=== PATIENT | female | born 1945 | race African-American/Black ===

== ENCOUNTER 2017-10-19 08:39 | Inpatient (IN) | payer OTHER ==
[2017-10-19] VITALS (14 sets, daily range): BP systolic 153–190; BP diastolic 44–78
[~2017-10-19] VITALS: Ht 160 cm; Wt 119.8 kg
[~2017-10-19 08:39] MED LIST: CHLORTHALIDONE25 MG PO; ETODOLAC 400 M400 M1 PO; FLEXERIL PO; GLUCOPHAGE500 MG PO; NORCO 5-325 TA1 EACH PO; NORVASC10 MG PO; PRINIVIL10 MG PO
[2017-10-19 10:16] LABS: ABSOLUTE NEUTROPHILS 7.6 thou/uL (1.4-8.2); BASOPHILS 0.8 % (0.0-2.0); HEMATOCRIT 38.3 % (37.0-47.0); HEMOGLOBIN 13.1 gm/dL (12.0-15.0); LYMPHOCYTES 21.3 % (24.0-44.0); MCH 30.5 pg (26.0-34.0); MCHC 34.3 g/dL (28.0-37.0); MCV 88.9 fL (80.0-100.0); MONOCYTES 7.8 % (1.0-8.0); PLATELET COUNT 384 thou/uL (150-400); POLYS 69.1 % (36.0-66.0); RDW 13.7 % (10.5-14.5)
[2017-10-19 10:28] LABS: CALCIUM 9.6 mg/dL (8.5-10.1); CREATININE 1.2 mg/dL (0.6-1.0); POTASSIUM 3.6 mmol/L (3.5-5.1)
[2017-10-19] MEDS ORDERED: COZAAR 25 MG TA25 M1 PO (18:44)
[2017-10-19 21:30] LABS: HEMOGLOBIN 12.3 gm/dL (12.0-15.0); MCH 30.3 pg (26.0-34.0); MCHC 34.1 g/dL (28.0-37.0); MCV 88.7 fL (80.0-100.0); RBC 4.05 mil/uL (4.20-5.00); RDW 13.6 % (10.5-14.5); WBC 10.4 thou/uL (4.0-11.0)
[2017-10-20] VITALS (25 sets, daily range): BP systolic 139–180; BP diastolic 52–86
[2017-10-20 03:38] LABS: HEMATOCRIT 37.3 % (37.0-47.0); HEMOGLOBIN 12.6 gm/dL (12.0-15.0); MCH 30.4 pg (26.0-34.0); MCHC 33.9 g/dL (28.0-37.0); MCV 89.9 fL (80.0-100.0); RBC 4.15 mil/uL (4.20-5.00); WBC 9.7 thou/uL (4.0-11.0)
[2017-10-20 03:48] LABS: CALCIUM 8.8 mg/dL (8.5-10.1); CREATININE 0.9 mg/dL (0.6-1.0); POTASSIUM 3.5 mmol/L (3.5-5.1)
[2017-10-20 05:32] LABS: HEMATOCRIT 36.6 % (37.0-47.0); HEMOGLOBIN 12.3 gm/dL (12.0-15.0); MCH 30.3 pg (26.0-34.0); MCHC 33.7 g/dL (28.0-37.0); RBC 4.06 mil/uL (4.20-5.00); RDW 13.8 % (10.5-14.5); WBC 9.5 thou/uL (4.0-11.0)
[2017-10-20 05:43] LABS: APTT 36.2 Seconds (24.5-32.8); FIBRINOGEN 205.5 mg/dL (210-360)
[2017-10-20 11:48] LABS: FIBRINOGEN 235.1 mg/dL (210-360)
[2017-10-21] VITALS (16 sets, daily range): BP systolic 129–174; BP diastolic 49–77
[2017-10-21 06:28] LABS: HEMATOCRIT 32.8 % (37.0-47.0); HEMOGLOBIN 11.1 gm/dL (12.0-15.0); MCH 30.4 pg (26.0-34.0); MCHC 33.9 g/dL (28.0-37.0); MCV 89.6 fL (80.0-100.0); RBC 3.66 mil/uL (4.20-5.00); RDW 13.9 % (10.5-14.5); WBC 9.4 thou/uL (4.0-11.0)
[2017-10-21 06:46] LABS: ALBUMIN 2.7 g/dL (3.4-5.0); ANION GAP 9 mmol/L (7-16); BUN 7 mg/dL (7-18); CALCIUM 8.2 mg/dL (8.5-10.1); CHLORIDE 105 mmol/L (98-107); CHOLESTEROL 180 mg/dL (<200); CO2 24 mmol/L (21-32); CREATININE 0.9 mg/dL (0.6-1.0); GLUCOSE 132 mg/dL (74-106); HDL CHOLESTEROL 66 mg/dL (>40); LDL CHOLESTEROL 94 mg/dL (<100); POTASSIUM 3.5 mmol/L (3.5-5.1); SGOT 28 U/L (15-37); SGPT 23 U/L (30-65); SODIUM 138 mmol/L (136-145); TC:HDL 2.7 Ratio (Not establshd); TOTAL BILIRUBIN 0.4 mg/dL (<0.1-1.0); TOTAL PROTEIN 5.9 g/dL (6.4-8.2); TRIGLYCERIDE 101 mg/dL (<150); VLDL 20 mg/dL (<40)
[2017-10-21 15:06] LABS: GLYCOHEMOGLOBIN (HGB A1C) 6.4 % (4.8-5.6)
[2017-10-22 00:14] VITALS: BP 151/59
[2017-10-22 04:18] VITALS: BP 176/63
[2017-10-22 06:13] LABS: HEMATOCRIT 32.1 % (37.0-47.0); HEMOGLOBIN 10.9 gm/dL (12.0-15.0); MCH 30.2 pg (26.0-34.0); RBC 3.6 mil/uL (4.20-5.00); RDW 13.8 % (10.5-14.5); WBC 8.6 thou/uL (4.0-11.0)
[2017-10-22 06:34] LABS: ALBUMIN 2.9 g/dL (3.4-5.0); CALCIUM 8.8 mg/dL (8.5-10.1); POTASSIUM 3.6 mmol/L (3.5-5.1); TOTAL BILIRUBIN 0.3 mg/dL (<0.1-1.0); TOTAL PROTEIN 6.5 g/dL (6.4-8.2)
[2017-10-22 07:30] VITALS: BP 153/43; BP 153/71
[2017-10-22 11:13] VITALS: BP 154/45
[2017-10-22 19:30] VITALS: BP 146/56
[2017-10-23 04:52] LABS: HEMATOCRIT 31.6 % (37.0-47.0); HEMOGLOBIN 10.8 gm/dL (12.0-15.0); MCH 30.8 pg (26.0-34.0); MCHC 34.2 g/dL (28.0-37.0); MCV 89.9 fL (80.0-100.0); RBC 3.51 mil/uL (4.20-5.00); RDW 13.6 % (10.5-14.5); WBC 8.2 thou/uL (4.0-11.0)
[2017-10-23 05:05] LABS: PROTIME 10.2 Seconds (9.3-11.4)
[2017-10-23 06:13] VITALS: BP 140/59
[2017-10-23 08:36] VITALS: BP 158/80
[2017-10-23 11:52] VITALS: BP 160/64
[2017-10-23 16:10] VITALS: BP 179/62
[2017-10-23 19:55] VITALS: BP 177/54
[2017-10-24 00:04] VITALS: BP 157/48
[2017-10-24 04:00] VITALS: BP 149/50
[2017-10-24 05:33] LABS: PROTIME 10.1 Seconds (9.3-11.4)
[2017-10-24 09:00] VITALS: BP 173/73
[2017-10-24 11:51] VITALS: BP 175/82
[2017-10-24 16:47] VITALS: BP 161/65
[2017-10-24 22:54] VITALS: BP 190/85
[2017-10-25] VITALS (7 sets, daily range): BP systolic 138–171; BP diastolic 55–114
[2017-10-25 06:45] LABS: PROTIME 10.7 Seconds (9.3-11.4)
[2017-10-26 03:47] VITALS: BP 167/54
[2017-10-26 07:05] LABS: HEMATOCRIT 31.1 % (37.0-47.0); HEMOGLOBIN 10.7 gm/dL (12.0-15.0); MCH 30.7 pg (26.0-34.0); MCHC 34.5 g/dL (28.0-37.0); MCV 89.1 fL (80.0-100.0); RBC 3.49 mil/uL (4.20-5.00); RDW 14.2 % (10.5-14.5); WBC 7.4 thou/uL (4.0-11.0)
[2017-10-26 07:17] LABS: INR 1.2
[2017-10-26] MEDS ORDERED: ENOXAPARIN120 MG/0.1 SUBQ (11:08)
[2017-10-26] MEDS ORDERED: COUMADIN7.5 MG PO (11:08)
[2017-10-26 11:15] VITALS: BP 167/54
[2017-10-26 15:20] VITALS: BP 167/54
== END 2017-10-26 18:05 | disposition home health service (06) | DRG 299 ==
LOC: ER 08:39 → 2N 13:33 → EROBS 13:33 → ICU 13:33 → 2N 10-21 18:44 → ENTRNSPT 10-26 16:53 → 2N 10-26 18:05
PROVIDERS: Family Medicine; Hospitalist; Internal Medicine; Nurse Practitioner; Radiology Diagnostic Radiology
PROC: 3E06317 Introduction of Other Thrombolytic into Central Artery, Percutaneous Approach (ICD-10-PCS; principal; 2017-10-19)
PROC: 05H933Z Insertion of Infusion Device into Right Brachial Vein, Percutaneous Approach (ICD-10-PCS; 2017-10-20)
DX: I77.1 Stricture of artery (principal); E43 Unspecified severe protein-calorie malnutrition; N17.9 Acute kidney failure, unspecified; I10 Essential (primary) hypertension; E11.51 Type 2 diabetes mellitus with diabetic peripheral angiopathy without gangrene; I99.8 Other disorder of circulatory system; Z88.7 Allergy status to serum and vaccine; Z88.6 Allergy status to analgesic agent; Z91.013 Allergy to seafood; Z87.891 Personal history of nicotine dependence; Z79.899 Other long term (current) drug therapy; Z28.21 Immunization not carried out because of patient refusal
CPT/HCPCS: 10078; 27000